=== PATIENT | male | born 1995 | race Caucasian/White ===

== ENCOUNTER 2016-09-04 05:36 | Outpatient (CLI) | payer MEDICAID ==
[~2016-09-04] VITALS: Ht 175.3 cm; Wt 117.9 kg
--- OUTSIDE RECORDS SUMMARY | 2016-09-04 05:39 | XMS REPORT ---
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
[2016-09-04 11:45] VITALS: BP 137/72
[2016-09-04 12:09] LABS: BASOPHILS % (AUTO) 0 % (0-10); EOSINOPHILS # (AUTO) 0.3 10^3/uL (0.0-0.3); EOSINOPHILS % (AUTO) 3 % (0-10); LYMPHOCYTES # (AUTO) 2.7 X 10^3 (1.0-4.0); LYMPHOCYTES % (AUTO) 30 % (12-44); MEAN CORPUSCULAR HEMOGLOBIN 29 PG (25-34); MEAN CORPUSCULAR HGB CONC 35 G/DL (32-36); MEAN CORPUSCULAR VOLUME 83 FL (80-99); MEAN PLATELET VOLUME 10.6 FL (7.4-10.4); MONOCYTES # (AUTO) 0.8 X 10^3 (0.0-1.0); MONOCYTES % (AUTO) 9 % (0-12); NEUTROPHILS # (AUTO) 5.1 X 10^3 (1.8-7.8); NEUTROPHILS % (AUTO) 58 % (42-75); PLATELET COUNT 217 10^3/uL (130-400); RED BLOOD COUNT 5.69 10^6/uL (4.35-5.85); WHITE BLOOD COUNT 8.8 10^3/uL (4.3-11.0)
[2016-09-04 12:29] LABS: ANION GAP 10 MMOL/L (5-14); BLOOD UREA NITROGEN 16 MG/DL (7-18); BUN/CREATININE RATIO 21; CALCIUM 9.4 MG/DL (8.5-10.1); CARBON DIOXIDE 21 MMOL/L (21-32); CHLORIDE 108 MMOL/L (98-107); CREATININE SERUM 0.77 MG/DL (0.60-1.30); GFR ESTIMATED > 60; GLUCOSE 86 MG/DL (70-105); SODIUM 139 MMOL/L (135-145)
== END 2016-09-04 11:57 | disposition home or self-care (01) ==
LOC: PREOP 05:36
PROVIDERS: ATTEND Otolaryngology Otolaryngology/Facial Plastic Surgery
DX: Z01.812 Encounter for preprocedural laboratory examination (principal); Z11.2 Encounter for screening for other bacterial diseases; H65.23 Chronic serous otitis media, bilateral; H69.93 Unspecified Eustachian tube disorder, bilateral
CPT/HCPCS: 36415; 80048; 85025; 87081

== ENCOUNTER 2016-09-07 06:15 | Day surgery (SDC) | payer MEDICAID ==
[~2016-09-07] VITALS: Ht 175.3 cm; Wt 117.9 kg
[2016-09-07] MEDS ORDERED: LACTATED RINGERS 1,000 ML IV PRN (06:32)
[2016-09-07 06:33] VITALS: BP 137/87
[2016-09-07] MEDS ORDERED: ONDANSETRON 4 MG/2 ML (SDV) Z0FRAN ONE (06:39)
[2016-09-07] MEDS ORDERED: proPOfol 200 MG/20 ML (DIPRIVAN) VIAL IV ONE (06:39)
[2016-09-07] MEDS ORDERED: fentaNYL INJECTION 100 MCG/2 ML AMP ONE (06:39)
[2016-09-07] MEDS ORDERED: DEXAMETHASONE PF 10 MG/ML (DECADRON) VIAL ONE (06:39)
[2016-09-07] MEDS ORDERED: SEVOFLURANE (ULTANE) 15 ML INHAL SOLN ONE ×2 (06:40→07:23)
[2016-09-07] MEDS ORDERED: MIDAZOLAM 2 MG/2 ML (VERSED) VIAL ONE (06:40)
--- NOTE | 2016-09-07 06:48 | Progress Note-Pre Operative ---
Pre-Operative Progress Note H&P Reviewed The H&P was reviewed, patient examined and no changes noted. Date H&P Reviewed: Sep 07, 2016 Time H&P Reviewed: 06:45 Pre-Operative Diagnosis: Bilat Chronic NASIR CONNER NEWMAN MD Sep 07, 2016 6:48 am
[2016-09-07] MEDS ORDERED: fentaNYL 15 MCG/D5W 3 ML SYR Anesthesia IV ONE (06:56)
[2016-09-07] MEDS ORDERED: morphine INJ 4 MG/ML 1 ML (VIAL/SYRINGE) ONE (06:56)
--- NOTE | 2016-09-07 07:27 | Progress Note-Post Operative ---
Post-Operative Progess Note Pre-Operative Diagnosis Bilat Chronic NASIR Post-Operative Diagnosis same Post-Op Procedure Note Date of Procedure: Sep 07, 2016 Name of Procedure: bmt Anesthesia Type lma CONNER NEWMAN MD Sep 07, 2016 7:27 am
[2016-09-07] MEDS ORDERED: ONDANSETRON 4 MG/2 ML (SDV) Z0FRAN IV PRN (07:30)
[2016-09-07] MEDS ORDERED: morphine INJ 10 MG/ML 1ML (SYR OR VIAL) IV PRN (07:30)
[2016-09-07] MEDS ORDERED: APAP 325 MG/10.15 ML LIQ (TYLENOL) UDC PO PRN (07:30)
[2016-09-07 08:30] VITALS: BP 137/87
[2016-09-07] MEDS ORDERED: CIPR5DRO EACH EAR (08:44)
[2016-09-07 09:00] VITALS: BP 119/63
[2016-09-07 09:05] VITALS: BP 137/87
== END 2016-09-07 09:05 | disposition home or self-care (01) ==
LOC: SDC 06:15
PROVIDERS: ATTEND Otolaryngology Otolaryngology/Facial Plastic Surgery
DX: H65.23 Chronic serous otitis media, bilateral (principal)